=== PATIENT | male | born 1940 ===

== ENCOUNTER 2018-02-11 16:16 | Inpatient (IN) | payer MEDICARE ==
--- NOTE | 2018-02-11 18:03 | ED PDOC ---
HPI: Psych/Substance Abuse Time Seen by Provider: 02/11/18 18:02 Chief Complaint (Nursing): Psychiatric Evaluation Chief Complaint (Provider): eval History Per: Patient, Family (daughter) Additional Complaint(s): 77-year-old male with history of dementia presents to emergency department for evaluation. Patient's daughter states that she brought patient to his primary doctor today and primary doctor referred patient to the emergency room for evaluation. Patient has been wandering outside his home and was missing for over 24 hours last week. When he returned he was complaining of pain to right ribs. It is unclear whether or not he sustained any traumatic injuries. Daughter states that over the past several months patient has had decreased appetite and refuses to eat. The only thing he drinks his coffee. PMD: Dr. Orlando Past Medical History Reviewed: Historical Data, Nursing Documentation, Vital Signs Vital Signs: Last Vital Signs Temp 98.7 F 02/11/18 16:38 Pulse 62 02/11/18 16:38 Resp 16 02/11/18 16:38 BP 116/84 02/11/18 16:38 Pulse Ox 98 02/11/18 16:38 - Medical History PMH: Alzheimer's Disease, Dementia - Family History Family History: States: No Known Family Hx - Living Arrangements Living Arrangements: With Family - Social History Current smoker - smoking cessation education provided: No Alcohol: None Drugs: Denies - Home Medications Home Medications: Ambulatory Orders Medication Instructions Recorded Donepezil HCl [Donepezil HCl] 23 mg PO HS 02/11/18 - Allergies Allergies/Adverse Reactions: Allergies Allergy/AdvReac Type Severity Reaction Status Date / Time No Known Allergies Allergy Verified 02/11/18 16:38 Review of Systems ROS Statement: Except As Marked, All Systems Reviewed And Found Negative Neurological: Positive for: Altered Mental Status Physical Exam - Reviewed Nursing Documentation Reviewed: Yes Vital Signs Reviewed: Yes - Physical Exam Appears: Positive for: Well, Non-toxic, No Acute Distress Head Exam: Positive for: ATRAUMATIC, NORMAL INSPECTION Skin: Positive for: Normal Color. Negative for: Rash Eye Exam: Positive for: Normal appearance Cardiovascular/Chest: Positive for: Regular Rate, Rhythm, Chest Non Tender ( Mild tenderness along right costal margin with no palpable bony deformity) Respiratory: Positive for: Normal Breath Sounds. Negative for: Wheezing, Respiratory Distress Gastrointestinal/Abdominal: Positive for: Soft, Tenderness. Negative for: Distended, Guarding Extremity: Positive for: Normal ROM Neurologic/Psych: Positive for: Other (Patient is alert and awake, he does not answer questions appropriately he is not oriented to person, place or time, patient does follow commands) - Laboratory Results Result Diagrams: 02/11/18 18:51 02/11/18 18:51 - ECG O2 Sat by Pulse Oximetry: 98 Pulse Ox Interpretation: Normal Medical Decision Making Medical Decision Makin-year-old male with altered mental status, sent by PMD. Case d/w Dr. Orlando who states to admit to his service and order labs, CT head and CT chest abdomen and pelvis Plan: EKG CT head, chest, abdomen and pelvis CBC CMP Troponin UA IV insertion Disposition - Clinical Impression Clinical Impression: Altered mental status - Patient ED Disposition Is Patient to be Admitted: Transfer of Care - Disposition Disposition: Transfer of Care Disposition Time: 20:01 Condition: FAIR Forms: [employer] (Bangladeshi) Patient Signed Over To: Marie Emery Handoff Comments: Pending diagnostic testing results
[2018-02-11 18:55] LABS: BASO # 0.1 K/uL (0.0-0.2); EOS # 0.5 K/uL (0.0-0.7); EOS % 6.8 % (0.0-4.0); HEMOGLOBIN 14.6 g/dL (12.0-18.0); LYMPH # 1.2 K/uL (1.0-4.3); LYMPH % 16.5 % (20.0-40.0); MEAN CELL VOLUME 89.3 fl (80.0-94.0); MEAN CORPUSCULAR HEMOGLOBIN 29.8 pg (27.0-31.0); MEAN CORPUSCULAR HGB CONC 33.4 g/dL (33.0-37.0); MEAN PLATELET VOLUME 8.3 fl (7.2-11.7); MONO # 0.7 K/uL (0.0-0.8); MONO % 9.1 % (0.0-10.0); NEUT # 4.9 K/uL (1.8-7.0); NEUT % 66.6 % (50.0-75.0); RBC 4.9 Mil/uL (4.40-5.90); RED CELL DISTRIBUTION WIDTH 13.4 % (11.5-14.5); WHITE BLOOD COUNT 7.4 K/uL (4.8-10.8)
[2018-02-11 19:08] LABS: URINE BACTERIA OCC (<OCC); URINE BILIRUBIN NEGATIVE (NEGATIVE); URINE BLOOD NEGATIVE (NEGATIVE); URINE CLARITY SLIGHTY-CLOUDY (Clear); URINE COLOR YELLOW (YELLOW); URINE GLUCOSE (UA) NEG (Normal); URINE LEUKOCYTE ESTERASE NEG Leu/uL (Negative); URINE PROTEIN NEGATIVE (NEGATIVE)
[2018-02-11 19:13] LABS: ALB/GLOB RATIO 1.4 (1.0-2.1); ALBUMIN 4.6 g/dL (3.5-5.0); ALT/SGPT 43 U/L (21-72); AST/SGOT 60 U/L (17-59); BLOOD UREA NITROGEN 18 mg/dl (9-20); CALCIUM 9.5 mg/dL (8.4-10.2); GFR NON-AFRICAN AMERICAN > 60
--- NOTE | 2018-02-11 20:06 | ED PDOC ---
- Laboratory Results Result Diagrams: 02/11/18 18:51 02/11/18 18:51 - ECG O2 Sat by Pulse Oximetry: 98 - Progress ED Course And Treament: case endorsed to magazine writer from Marcela ANDRADE pending CT's, admission EXAM: CT Head Without Intravenous Contrast EXAM DATE/TIME: 02/11/2018 6:20 PM CLINICAL HISTORY: 77 years old, male; Signs and symptoms; Other: Possible trauma; Additional info : [facility] TECHNIQUE: Axial computed tomography images of the head/brain without intravenous contrast. All CT scans at this facility use at least one of these dose optimization techniques: automated exposure control; mA and/or kV adjustment per patient size (includes targeted exams where dose is matched to clinical indication); or iterative reconstruction. COMPARISON: No relevant prior studies available. FINDINGS: Brain: There is cerebral atrophy with compensatory dilation of the ventricles. Periventricular white matter hypoattenuation most likely reflects chronic small vessel ischemic change. No hemorrhage. Ventricles: See above. Bones/joints: Unremarkable. No acute fracture. Soft tissues: Unremarkable. Sinuses: Unremarkable as visualized. No acute sinusitis. Mastoid air cells: Unremarkable as visualized. No mastoid effusion. IMPRESSION: No acute intracranial findings. EXAM: CT Chest Without Intravenous Contrast EXAM DATE/TIME: 02/11/2018 6:20 PM CLINICAL HISTORY: 77 years old, male; Signs and symptoms; Other: Possible trauma TECHNIQUE: Axial computed tomography images of the chest without intravenous contrast. All CT scans at this facility use at least one of these dose optimization techniques: automated exposure control; mA and/or kV adjustment per patient size (includes targeted exams where dose is matched to clinical indication); or iterative reconstruction. COMPARISON: No relevant prior studies available. FINDINGS: Lungs: Unremarkable. No mass. No consolidation. Pleural space: Unremarkable. No pneumothorax. No significant effusion. Heart: Unremarkable. No cardiomegaly. No significant pericardial effusion. Bones/joints: Old sternal fracture. Old appearing mild compression deformity of the T11 vertebral body. Mild multilevel spondylytic change in the thoracic spine. No dislocation. Soft tissues: Unremarkable. Vasculature: Ectatic ascending thoracic aorta measures 4.4 cm. No thoracic aortic aneurysm. Lymph nodes: Unremarkable. No enlarged lymph nodes. IMPRESSION: 1. No acute posttraumatic finding in the chest. 2. Ectatic ascending thoracic aorta measures 4.4 cm.. EXAM: CT Abdomen and Pelvis Without Intravenous Contrast EXAM DATE/TIME: 02/11/2018 6:20 PM CLINICAL HISTORY: 77 years old, male; Signs and symptoms; Other: Possible trauma TECHNIQUE: Axial computed tomography images of the abdomen and pelvis without intravenous contrast. All CT scans at this facility use at least one of these dose optimization techniques: automated exposure control; mA and/or kV adjustment per patient size (includes targeted exams where dose is matched to clinical indication); or iterative reconstruction. COMPARISON: No relevant prior studies available. FINDINGS: Lung bases: Unremarkable. No mass. No consolidation. ABDOMEN: Liver: Unremarkable. Gallbladder and bile ducts: Unremarkable. No calcified stones. No ductal dilation. Pancreas: Unremarkable. No ductal dilation. Spleen: Unremarkable. No splenomegaly. Adrenals: Unremarkable. No mass. Kidneys and ureters: Unremarkable. No obstructing stones. No hydronephrosis. Stomach and bowel: Unremarkable. No obstruction. No mucosal thickening. PELVIS: Appendix: No findings to suggest acute appendicitis. Bladder: Unremarkable. No stones. Reproductive: Unremarkable as visualized. ABDOMEN and PELVIS: Intraperitoneal space: Unremarkable. No free air. No significant fluid collection. Bones/joints: No acute fracture. No dislocation. Soft tissues: Unremarkable. Vasculature: Atherosclerotic calcifications are present in the abdominal aorta. No abdominal aortic aneurysm. Lymph nodes: Unremarkable. No enlarged lymph nodes. IMPRESSION: No acute posttraumatic finding in the abdomen or pelvis. Patient to be admitted to med/surg under the care of Dr. Orlando as previously arranged. Disposition - Clinical Impression Clinical Impression: Altered mental status, Dementia - POA Present On Arrival: None - Disposition Disposition: Admitted as In-Patient Disposition Time: 20:29 Condition: FAIR
[2018-02-11] MEDS ORDERED: Dextrose 5%/0.45% NS 1,000 ML IV SCH (23:45)
[2018-02-12] MEDS ORDERED: Pneumococcal 23-Valent Vaccine IM ONE (00:23)
[2018-02-12 06:28] LABS: BASO # 0.1 K/uL (0.0-0.2); EOS # 0.7 K/uL (0.0-0.7); EOS % 10.1 % (0.0-4.0); LYMPH # 1.4 K/uL (1.0-4.3); LYMPH % 21.6 % (20.0-40.0); MEAN CELL VOLUME 89.5 fl (80.0-94.0); MEAN CORPUSCULAR HEMOGLOBIN 30.2 pg (27.0-31.0); MEAN CORPUSCULAR HGB CONC 33.7 g/dL (33.0-37.0); MEAN PLATELET VOLUME 8.3 fl (7.2-11.7); MONO # 0.7 K/uL (0.0-0.8); MONO % 10.7 % (0.0-10.0); NEUT # 3.7 K/uL (1.8-7.0); NEUT % 56.6 % (50.0-75.0); RBC 4.63 Mil/uL (4.40-5.90); RED CELL DISTRIBUTION WIDTH 13.4 % (11.5-14.5); WHITE BLOOD COUNT 6.5 K/uL (4.8-10.8)
[2018-02-12 07:01] LABS: BLOOD UREA NITROGEN 18 mg/dl (9-20); CALCIUM 9.1 mg/dL (8.4-10.2); GFR NON-AFRICAN AMERICAN > 60
[2018-02-12 07:15] LABS: T4 8.94 ug/dl (5.5-11.0)
--- NOTE | 2018-02-12 07:29 | CARD ---
APPROVED REPORT Date of service: 02/11/2018 <Conclusion> Sinus bradycardia with premature supraventricular complexes Otherwise normal ECG
--- NOTE | 2018-02-12 08:14 | CP.PCM.HP ---
History of Present Illness - History of Present Illness History of Present Illness: 77 YR OLD MALE ADMITTED WITH ALTERED MENTAL STATUS AND WORSENING CONFUSION X SEVERAL MONTHS--WORSE ON THE WEEK OF ADMISSION.THE PT HAS BECOME PROGRESSIVELY CONFUSED OVER THE PAST SEVERAL WEEKS AND HAS BEEN WONDERING THE STREETS[LOST ON SEVERAL OCCASIONS FOR MORE THAN 24HRS AND HAD TO BE BROUGHT BACK BY POLICE].HE IS CONFUSED TO PERSON/PLACE AND TIME AND HAS BEEN REFUSING TO EAT.HE HAS BEEN COMPLAINING OF CHEST WALL AND ABDOMINAL PAINS[NO HX OF TRAUMA].HAS LOST UNQUANTITATED AMOUNTS OF WEIGHT RECENTLY. PAST MEDICAL HISTORY IS REMARKABLE FOR TRAUMATIC SHOULDER FRACTURE FAMILY [id number] SOCIAL [id number]/DRUG/ETOH Present on Admission - Present on Admission Any Indicators Present on Admission: Yes Past Patient History - Past Medical History & Family History Past Medical History?: Yes - Past Social History Smoking Status: Former Smoker - CARDIAC Hx Cardiac Disorders: No - PULMONARY Hx Respiratory Disorders: No - NEUROLOGICAL Hx Neurological Disorder: Yes Hx Alzheimer's Disease: Yes Hx Dementia: Yes - HEENT Hx HEENT Problems: No - RENAL Hx Chronic Kidney Disease: No - ENDOCRINE/METABOLIC Hx Endocrine Disorders: No - HEMATOLOGICAL/ONCOLOGICAL Hx Blood Disorders: No - INTEGUMENTARY Hx Dermatological Problems: No - MUSCULOSKELETAL/RHEUMATOLOGICAL Hx Musculoskeletal Disorders: No Hx Falls: No - GASTROINTESTINAL Hx Gastrointestinal Disorders: No - GENITOURINARY/GYNECOLOGICAL Hx Genitourinary Disorders: No - PSYCHIATRIC Hx Psychophysiologic Disorder: Yes - SURGICAL HISTORY Hx Surgeries: Yes Hx Herniorrhaphy: Yes (abdominal heria) Other/Comment: neck sx - ANESTHESIA Hx Anesthesia: Yes Hx Anesthesia Reactions: No Hx Malignant Hyperthermia: No Has any member of the family had a problem w/ anesthesia?: No Meds Allergies/Adverse Reactions: Allergies Allergy/AdvReac Type Severity Reaction Status Date / Time No Known Allergies Allergy Verified 02/11/18 16:38 Physical Exam - Constitutional Appears: Well, Older Than Stated Age, Confused, Cachectic - Head Exam Head Exam: ATRAUMATIC, NORMAL INSPECTION, NORMOCEPHALIC - Eye Exam Eye Exam: EOMI, Normal appearance, PERRL Pupil Exam: NORMAL ACCOMODATION, PERRL - ENT Exam ENT Exam: Mucous Membranes Moist, Normal Exam - Neck Exam Neck exam: Positive for: Normal Inspection - Respiratory Exam Respiratory Exam: Chest Wall Tenderness, Clear to Auscultation Bilateral, NORMAL BREATHING PATTERN - Cardiovascular Exam Cardiovascular Exam: REGULAR RHYTHM - GI/Abdominal Exam GI & Abdominal Exam: Normal Bowel Sounds, Soft, Tenderness - Rectal Exam Rectal Exam: NORMAL INSPECTION - Extremities Exam Extremities exam: Positive for: normal inspection - Back Exam Back exam: NORMAL INSPECTION - Neurological Exam Neurological exam: Alert, CN II-XII Intact, Normal Gait, Oriented x3, Reflexes Normal - Psychiatric Exam Psychiatric exam: Normal Affect, Normal Mood - Skin Skin Exam: Dry, Intact, Normal Color, Warm Results - Vital Signs Recent Vital Signs: Last Vital Signs Temp 97.9 F 02/12/18 07:33 Pulse 78 02/12/18 07:33 Resp 20 02/12/18 07:33 BP 135/72 02/12/18 07:33 Pulse Ox 96 02/12/18 07:33 - Labs Result Diagrams: 02/12/18 06:05 02/12/18 06:05 Labs: Laboratory Results - last 24 hr 02/11/18 02/11/18 02/11/18 18:51 18:51 18:51 WBC 7.4 RBC 4.90 Hgb 14.6 Hct 43.7 MCV 89.3 MCH 29.8 MCHC 33.4 RDW 13.4 Plt Count 233 MPV 8.3 Neut % (Auto) 66.6 Lymph % (Auto) 16.5 L [place] % (Auto) 9.1 Eos % (Auto) 6.8 H Baso % (Auto) 1.0 Neut # (Auto) 4.9 Lymph # (Auto) 1.2 [place] # (Auto) 0.7 Eos # (Auto) 0.5 Baso # (Auto) 0.1 Sodium 141 Potassium 4.3 Chloride 103 Carbon Dioxide 33 H Anion Gap 9 L BUN 18 Creatinine 0.6 L Est GFR ( Amer) > 60 Est GFR (Non-Af Amer) > 60 Random Glucose 130 H Calcium 9.5 Total Bilirubin 1.8 H AST 60 H ALT 43 Alkaline Phosphatase 53 Total Protein 7.9 Albumin 4.6 Globulin 3.4 Albumin/Globulin Ratio 1.4 Vitamin B12 Thyroxine (T4) TSH 3rd Generation Urine Color Yellow Urine Clarity Slighty-cloudy Urine pH 6.0 Ur Specific [place] 1.015 Urine Protein Negative Urine Glucose (UA) Neg Urine Ketones Negative Urine Blood Negative Urine Nitrate Negative Urine Bilirubin Negative Urine Urobilinogen 2.0 Ur Leukocyte Esterase Neg Urine RBC (Auto) 2 Urine Microscopic WBC 1 Urine Bacteria Occ H 02/12/18 02/12/18 06:05 06:05 WBC 6.5 RBC 4.63 Hgb 14.0 Hct 41.4 MCV 89.5 MCH 30.2 MCHC 33.7 RDW 13.4 Plt Count 205 MPV 8.3 Neut % (Auto) 56.6 Lymph % (Auto) 21.6 [place] % (Auto) 10.7 H Eos % (Auto) 10.1 H Baso % (Auto) 1.0 Neut # (Auto) 3.7 Lymph # (Auto) 1.4 [place] # (Auto) 0.7 Eos # (Auto) 0.7 Baso # (Auto) 0.1 Sodium 141 Potassium 4.3 Chloride 104 Carbon Dioxide 32 H Anion Gap 9 L BUN 18 Creatinine 0.7 L Est GFR ( Amer) > 60 Est GFR (Non-Af Amer) > 60 Random Glucose 101 Calcium 9.1 Total Bilirubin AST ALT Alkaline Phosphatase Total Protein Albumin Globulin Albumin/Globulin Ratio Vitamin B12 309 Thyroxine (T4) 8.94 TSH 3rd Generation 1.30 Urine Color Urine Clarity Urine pH Ur Specific [place] Urine Protein Urine Glucose (UA) Urine Ketones Urine Blood Urine Nitrate Urine Bilirubin Urine Urobilinogen Ur Leukocyte Esterase Urine RBC (Auto) Urine Microscopic WBC Urine Bacteria Assessment & Plan - Assessment and Plan (Free Text) Assessment: ALTERED MENTAL STATUS--PROBABLY DUE TO DEMENTIA[ALZHEIMER'S TYPE--R/O ORGANIC/ PSYCHIATRIC PATHOLOGY WT LOSS--?ETIOLOGY?MALIGNANCY ABDOMINAL AND CHEST PAINS Plan: NEUROLOGY AND PSYCH EVALUATION MAY NEED OUT PT GI WORKUP FOR WT LOSS IF NEURO AND -PSYCH EVAL ARE NON-REVEALING - Date & Time Date: 02/12/18 Time: 08:21
--- NOTE | 2018-02-12 08:26 | CP.PCM.CON ---
History of Present Illness - History of Present Illness History of Present Illness: Psychiatry consult note CC: "I'm fine." HPI: 77 yo male, found wondering the streets, getting lost on several occasions. Patient is calm w/ leader writer. Denies depression/anxiety/AH/VH/SI/HI. No acute behavioral issues. He does not know that he is in the hospital or why. He does not know the date. He is a poor historian and has poor insight into his cognitive deficits. PMHx: Traumatic shoulder fracture; patient unable to provide any information PPHx: Patient denies past psychiatric history. SHx: Denies drugs/etoh/cig MSE: A + O x 1, calm, cooperative, good eye contact, speech soft, thought process- loose, thought content- no delusions, mood/affect- neutral, no AH/VH/SI /HI, poor I/J Head CT 02/11/18- Cerebral atrophy Impression: 77 yo male likely has chronic dementia, r/o acute delirium secondary to an acute medical condition. -No acute psychiatric medications or psychiatric admission indicated -Can consider a psychology consult for neurocognitive testing to determine degree of cognitive deficits Past Patient History - Past Medical History & Family History Past Medical History?: Yes - Past Social History Smoking Status: Former Smoker - CARDIAC Hx Cardiac Disorders: No - PULMONARY Hx Respiratory Disorders: No - NEUROLOGICAL Hx Neurological Disorder: Yes Hx Alzheimer's Disease: Yes Hx Dementia: Yes - HEENT Hx HEENT Problems: No - RENAL Hx Chronic Kidney Disease: No - ENDOCRINE/METABOLIC Hx Endocrine Disorders: No - HEMATOLOGICAL/ONCOLOGICAL Hx Blood Disorders: No - INTEGUMENTARY Hx Dermatological Problems: No - MUSCULOSKELETAL/RHEUMATOLOGICAL Hx Musculoskeletal Disorders: No Hx Falls: No - GASTROINTESTINAL Hx Gastrointestinal Disorders: No - GENITOURINARY/GYNECOLOGICAL Hx Genitourinary Disorders: No - PSYCHIATRIC Hx Psychophysiologic Disorder: Yes - SURGICAL HISTORY Hx Surgeries: Yes Hx Herniorrhaphy: Yes (abdominal heria) Other/Comment: neck sx - ANESTHESIA Hx Anesthesia: Yes Hx Anesthesia Reactions: No Hx Malignant Hyperthermia: No Has any member of the family had a problem w/ anesthesia?: No Meds Allergies/Adverse Reactions: Allergies Allergy/AdvReac Type Severity Reaction Status Date / Time No Known Allergies Allergy Verified 02/11/18 16:38 - Medications Medications: Current Medications Dextrose/Sodium Chloride (Dextrose 5%/0.45% Ns 1000 Ml) 1,000 mls @ 40 mls/hr IV .Q24H LIUDMILA Stop: 02/12/18 23:57 Last Admin: 02/12/18 00:45 Dose: 40 mls/hr Lorazepam (Ativan) 1 mg PO BID PRN PRN Reason: Agitation Memantine (Namenda) 10 mg PO DAILY LIUDMILA Results - Vital Signs Recent Vital Signs: Last Vital Signs Temp 97.9 F 02/12/18 07:33 Pulse 78 02/12/18 07:33 Resp 20 02/12/18 07:33 BP 135/72 02/12/18 07:33 Pulse Ox 96 02/12/18 07:33 - Labs Result Diagrams: 02/12/18 06:05 02/12/18 06:05 Labs: Laboratory Results - last 24 hr 02/11/18 02/11/18 02/11/18 18:51 18:51 18:51 WBC 7.4 RBC 4.90 Hgb 14.6 Hct 43.7 MCV 89.3 MCH 29.8 MCHC 33.4 RDW 13.4 Plt Count 233 MPV 8.3 Neut % (Auto) 66.6 Lymph % (Auto) 16.5 L [place] % (Auto) 9.1 Eos % (Auto) 6.8 H Baso % (Auto) 1.0 Neut # (Auto) 4.9 Lymph # (Auto) 1.2 [place] # (Auto) 0.7 Eos # (Auto) 0.5 Baso # (Auto) 0.1 Sodium 141 Potassium 4.3 Chloride 103 Carbon Dioxide 33 H Anion Gap 9 L BUN 18 Creatinine 0.6 L Est GFR ( Amer) > 60 Est GFR (Non-Af Amer) > 60 Random Glucose 130 H Calcium 9.5 Total Bilirubin 1.8 H AST 60 H ALT 43 Alkaline Phosphatase 53 Total Protein 7.9 Albumin 4.6 Globulin 3.4 Albumin/Globulin Ratio 1.4 Vitamin B12 Thyroxine (T4) TSH 3rd Generation Urine Color Yellow Urine Clarity Slighty-cloudy Urine pH 6.0 Ur Specific [place] 1.015 Urine Protein Negative Urine Glucose (UA) Neg Urine Ketones Negative Urine Blood Negative Urine Nitrate Negative Urine Bilirubin Negative Urine Urobilinogen 2.0 Ur Leukocyte Esterase Neg Urine RBC (Auto) 2 Urine Microscopic WBC 1 Urine Bacteria Occ H 02/12/18 02/12/18 06:05 06:05 WBC 6.5 RBC 4.63 Hgb 14.0 Hct 41.4 MCV 89.5 MCH 30.2 MCHC 33.7 RDW 13.4 Plt Count 205 MPV 8.3 Neut % (Auto) 56.6 Lymph % (Auto) 21.6 [place] % (Auto) 10.7 H Eos % (Auto) 10.1 H Baso % (Auto) 1.0 Neut # (Auto) 3.7 Lymph # (Auto) 1.4 [place] # (Auto) 0.7 Eos # (Auto) 0.7 Baso # (Auto) 0.1 Sodium 141 Potassium 4.3 Chloride 104 Carbon Dioxide 32 H Anion Gap 9 L BUN 18 Creatinine 0.7 L Est GFR ( Amer) > 60 Est GFR (Non-Af Amer) > 60 Random Glucose 101 Calcium 9.1 Total Bilirubin AST ALT Alkaline Phosphatase Total Protein Albumin Globulin Albumin/Globulin Ratio Vitamin B12 309 Thyroxine (T4) 8.94 TSH 3rd Generation 1.30 Urine Color Urine Clarity Urine pH Ur Specific [place] Urine Protein Urine Glucose (UA) Urine Ketones Urine Blood Urine Nitrate Urine Bilirubin Urine Urobilinogen Ur Leukocyte Esterase Urine RBC (Auto) Urine Microscopic WBC Urine Bacteria
--- NOTE | 2018-02-12 10:24 | CT ---
Date of service: 02/11/2018 PROCEDURE: CT HEAD WITHOUT CONTRAST. HISTORY: AMS COMPARISON: None available. TECHNIQUE: Axial computed tomography images were obtained through the head/brain without intravenous contrast. Radiation dose: Total exam DLP = 726 mGy-cm. This CT exam was performed using one or more of the following dose reduction techniques: Automated exposure control, adjustment of the mA and/or kV according to patient size, and/or use of iterative reconstruction technique. FINDINGS: HEMORRHAGE: No intracranial hemorrhage. BRAIN: No mass effect or edema. There is generalized cerebral atrophy with chronic microvascular ischemic changes. VENTRICLES: The ventriculomegaly is commensurate with the degree of atrophy CALVARIUM: Unremarkable. PARANASAL SINUSES: Unremarkable as visualized. No significant inflammatory changes. MASTOID AIR CELLS: Unremarkable as visualized. No inflammatory changes. OTHER FINDINGS: None. IMPRESSION: Cerebral atrophy, chronic microvascular ischemic changes and intracanal megaly -commensurate with the degree of atrophy No intracranial hemorrhage or mass effect Concordant results (preliminary interpretation) provided by [facility].
--- NOTE | 2018-02-12 10:51 | RAD ---
Date of service: 02/11/2018 HISTORY: clearance COMPARISON: No prior. FINDINGS: LUNGS: The lungs are well inflated and clear. PLEURA: No significant pleural effusion identified, no pneumothorax apparent. CARDIOVASCULAR: The heart is normal in size. There is aneurysmal dilatation of the ascending aorta. OSSEOUS STRUCTURES: No significant abnormalities. VISUALIZED UPPER ABDOMEN: Normal. OTHER FINDINGS: None. IMPRESSION: Aneurysmal dilatation of the ascending aorta. No active pulmonary disease.
--- NOTE | 2018-02-12 11:55 | CT ---
Date of service: 02/11/2018 PROCEDURE: CT Chest, Abdomen and Pelvis without intravenous contrast HISTORY: possible trauma COMPARISON: None available. TECHNIQUE: CT scan of the chest, abdomen and pelvis was performed without administration of intravenous contrast. Oral contrast was not administered. Coronal and sagittal reformatted images were obtained. Radiation dose: Total exam DLP = 350.73 mGy-cm. This CT exam was performed using one or more of the following dose reduction techniques: Automated exposure control, adjustment of the mA and/or kV according to patient size, and/or use of iterative reconstruction technique. FINDINGS: CT CHEST WITHOUT CONTRAST: LUNGS: Well inflated and clear. No nodule, mass or consolidation. MEDIASTINUM: Aneurysm of the ascending aorta measuring 4.4 x 4.4 cm. No pericardial effusion. Normal size heart. LYMPH NODES: Unremarkable. PLEURA: Unremarkable. No pneumothorax. No pleural fluid. BONES: Old deformity in the sternum. Old osteoporotic superior endplate compression deformity in the T11 vertebral body. OTHER FINDINGS: None. CT ABDOMEN AND PELVIS: LIVER: Normal in size. No gross lesion or ductal dilatation. GALLBLADDER AND BILE DUCTS: Unremarkable. PANCREAS: Normal in sinus. No gross lesion or ductal dilatation. SPLEEN: Normal in sinus. ADRENALS: No mass. KIDNEYS AND URETERS: Normal in sinus. No hydronephrosis. No solid mass. VASCULATURE: No aortic aneurysm. BOWEL: Normal in caliber. No obstruction. No gross mural thickening. APPENDIX: Normal appendix. PERITONEUM: Unremarkable. No free fluid. No free air. LYMPH NODES: Unremarkable. No enlarged lymph nodes. BLADDER: Unremarkable. REPRODUCTIVE: Unremarkable. BONES: No acute fracture. OTHER FINDINGS: None. IMPRESSION: 1. No acute findings in the chest. 2. 4.4 x 4.4 cm aneurysm of the ascending aorta. 3. No acute findings in the abdomen or pelvis. A preliminary report was provided by [facility].
[2018-02-12 12:48] VITALS: BMI 16.1
--- NOTE | 2018-02-13 07:58 | CP.PCM.PN ---
Subjective - Date & Time of Evaluation Date of Evaluation: 02/13/18 Time of Evaluation: 07:59 - Subjective Subjective: CALMER NO APPARENT DISTRESS CONFUSED TO PERSON/PLACE/TIME POOR INSIGHT DOES NOT KNOW WHY HE IS IN HOSPITAL Objective - Vital Signs/Intake and Output Vital Signs (last 24 hours): Temp Pulse Resp BP Pulse Ox 97.5 F L 54 L 18 149/80 99 02/13/18 07:34 02/13/18 07:34 02/13/18 07:34 02/13/18 07:34 02/13/18 07:34 - Medications Medications: Current Medications Haloperidol (Haldol) 0.5 mg PO Q8 PRN PRN Reason: Agitation Last Admin: 02/12/18 22:15 Dose: 0.5 mg Haloperidol Lactate (Haldol) 0.5 mg IM Q8 PRN PRN Reason: Agitation Memantine (Namenda) 10 mg PO DAILY LIUDMILA Last Admin: 02/12/18 09:14 Dose: 10 mg - Labs Labs: 02/12/18 06:05 02/12/18 06:05 - Constitutional Appears: No Acute Distress, Confused - Head Exam Head Exam: ATRAUMATIC, NORMAL INSPECTION, NORMOCEPHALIC - Eye Exam Eye Exam: EOMI, Normal appearance, PERRL Pupil Exam: NORMAL ACCOMODATION, PERRL - ENT Exam ENT Exam: Mucous Membranes Moist, Normal Exam - Neck Exam Neck Exam: Full ROM, Normal Inspection. absent: Lymphadenopathy - Respiratory Exam Respiratory Exam: Clear to Ausculation Bilateral, NORMAL BREATHING PATTERN - Cardiovascular Exam Cardiovascular Exam: REGULAR RHYTHM, +S1, +S2. absent: Murmur - GI/Abdominal Exam GI & Abdominal Exam: Soft, Normal Bowel Sounds. absent: Tenderness - Rectal Exam Rectal Exam: NORMAL INSPECTION - Extremities Exam Extremities Exam: Full ROM, Normal Capillary Refill, Normal Inspection. 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
--- NOTE | 2018-02-13 14:24 | CP.PCM.CON ---
History of Present Illness - History of Present Illness History of Present Illness: 77 yr old male, right handed who has a history of dementia, and presents with worsening confusion for several months, as well as wandering the streets. At time he has been missing for several hours. History is obtained from chart as patient is agitated and not able to give history. PMH: left shoulder fracture PSH: as above. FH/SH: lives with family. All: nkda On exam: alert aware oriented to person and place. no hallucinations. can name one object. no apasia. motor: good strength +2 dtr ul and ll bl. Toes downgoing. no clonus. gait testing refused. Past Patient History - Past Medical History & Family History Past Medical History?: Yes - Past Social History Smoking Status: Former Smoker - CARDIAC Hx Cardiac Disorders: No - PULMONARY Hx Respiratory Disorders: No - NEUROLOGICAL Hx Neurological Disorder: Yes Hx Alzheimer's Disease: Yes Hx Dementia: Yes - HEENT Hx HEENT Problems: No - RENAL Hx Chronic Kidney Disease: No - ENDOCRINE/METABOLIC Hx Endocrine Disorders: No - HEMATOLOGICAL/ONCOLOGICAL Hx Blood Disorders: No - INTEGUMENTARY Hx Dermatological Problems: No - MUSCULOSKELETAL/RHEUMATOLOGICAL Hx Musculoskeletal Disorders: No Hx Falls: No - GASTROINTESTINAL Hx Gastrointestinal Disorders: No - GENITOURINARY/GYNECOLOGICAL Hx Genitourinary Disorders: No - PSYCHIATRIC Hx Psychophysiologic Disorder: Yes - SURGICAL HISTORY Hx Surgeries: Yes Hx Herniorrhaphy: Yes (abdominal heria) Other/Comment: neck sx - ANESTHESIA Hx Anesthesia: Yes Hx Anesthesia Reactions: No Hx Malignant Hyperthermia: No Has any member of the family had a problem w/ anesthesia?: No Meds Allergies/Adverse Reactions: Allergies Allergy/AdvReac Type Severity Reaction Status Date / Time No Known Allergies Allergy Verified 02/11/18 16:38 - Medications Medications: Current Medications Haloperidol (Haldol) 0.5 mg PO Q8 PRN PRN Reason: Agitation Last Admin: 02/12/18 22:15 Dose: 0.5 mg Haloperidol Lactate (Haldol) 0.5 mg IM Q8 PRN PRN Reason: Agitation Memantine (Namenda) 10 mg PO DAILY LIUDMILA Last Admin: 02/13/18 10:05 Dose: 10 mg Results - Vital Signs Recent Vital Signs: Last Vital Signs Temp 97.5 F L 02/13/18 07:34 Pulse 54 L 02/13/18 07:34 Resp 18 02/13/18 07:34 BP 149/80 02/13/18 07:34 Pulse Ox 99 02/13/18 07:34 - Labs Result Diagrams: 02/12/18 06:05 02/12/18 06:05 - Imaging and Cardiology CT scan - head Status: Image reviewed by me, Report reviewed by me (ct head: shows atrophy and bifrontal hygromas. ) Assessment & Plan - Assessment and Plan (Free Text) Assessment: 77 yr old male with severe dementia and agitation. Appreciate psych consult and agree with delirium/psychosis of parkinsons. plan; 1. Start seroquel 25 mg po qhs 2. continue all other meds Will follow dr. atwood
[2018-02-13 15:50] VITALS: RESP 20
[2018-02-14 07:53] VITALS: O2SAT 97
--- NOTE | 2018-02-14 08:46 | CP.PCM.PN ---
Subjective - Date & Time of Evaluation Date of Evaluation: 02/14/18 Time of Evaluation: 08:44 - Subjective Subjective: Mr. Galicia was seen and examined at the bedside. He is awake, oriented to place ( [facility]), but not time and person. He is unable to answer some questions and claim of being 89 y/o and further claims of consuming all his foods. He is able to move all extremities. He remains on telesitter for patient safety. There was no untoward events overnight. Objective - Vital Signs/Intake and Output Vital Signs (last 24 hours): Temp Pulse Resp BP Pulse Ox 97.7 F 88 20 127/79 97 02/14/18 07:52 02/14/18 07:52 02/14/18 07:52 02/14/18 07:52 02/14/18 07:52 - Medications Medications: Current Medications Haloperidol (Haldol) 0.5 mg PO Q8 PRN PRN Reason: Agitation Last Admin: 02/12/18 22:15 Dose: 0.5 mg Haloperidol Lactate (Haldol) 0.5 mg IM Q8 PRN PRN Reason: Agitation Memantine (Namenda) 10 mg PO DAILY [facility] Last Admin: 02/14/18 08:31 Dose: 10 mg Quetiapine Fumarate (Seroquel) 25 mg PO HS LIUDMILA - Labs Labs: 02/12/18 06:05 02/12/18 06:05 - Constitutional Appears: No Acute Distress - Head Exam Head Exam: NORMAL INSPECTION - Eye Exam Pupil Exam: PERRL - Neurological Exam Neurological Exam: Awake Neuro motor strength exam: Left Upper Extremity: 4, Right Upper Extremity: 4, Left Lower Extremity: 4, Right Lower Extremity: 4 Additional comments: awake, able to answer couple questions appropriately, sensation is intact. Assessment and Plan (1) Dementia Assessment & Plan: Continue all current medical regimen. Recommend hydration, provide a familiar environment, may d/c to home and follow up with DR. Johnson in 2 weeks at [address] [place] [address] [address] [facility] [address], tel [phone] Status: Acute
--- NOTE | 2018-02-14 10:35 | CP.PCM.DIS ---
Provider - Provider Date of Admission: 02/11/18 20:27 Attending physician: Ceasar Orlando MD Time Spent in preparation of Discharge (in minutes): 30 Diagnosis - Discharge Diagnosis (1) Altered mental status Status: Acute (2) Dementia Status: Acute Hospital Course - Lab Results Lab Results: Most Recent Lab Values WBC 6.5 K/uL (4.8-10.8) 02/12/18 06:05 RBC 4.63 Mil/uL (4.40-5.90) 02/12/18 06:05 Hgb 14.0 g/dL (12.0-18.0) 02/12/18 06:05 Hct 41.4 % (35.0-51.0) 02/12/18 06:05 MCV 89.5 fl (80.0-94.0) 02/12/18 06:05 MCH 30.2 pg (27.0-31.0) 02/12/18 06:05 MCHC 33.7 g/dL (33.0-37.0) 02/12/18 06:05 RDW 13.4 % (11.5-14.5) 02/12/18 06:05 Plt Count 205 K/uL (130-400) 02/12/18 06:05 MPV 8.3 fl (7.2-11.7) 02/12/18 06:05 Neut % (Auto) 56.6 % (50.0-75.0) 02/12/18 06:05 Lymph % (Auto) 21.6 % (20.0-40.0) 02/12/18 06:05 [place] % (Auto) 10.7 % (0.0-10.0) H 02/12/18 06:05 Eos % (Auto) 10.1 % (0.0-4.0) H 02/12/18 06:05 Baso % (Auto) 1.0 % (0.0-2.0) 02/12/18 06:05 Neut # (Auto) 3.7 K/uL (1.8-7.0) 02/12/18 06:05 Lymph # (Auto) 1.4 K/uL (1.0-4.3) 02/12/18 06:05 [place] # (Auto) 0.7 K/uL (0.0-0.8) 02/12/18 06:05 Eos # (Auto) 0.7 K/uL (0.0-0.7) 02/12/18 06:05 Baso # (Auto) 0.1 K/uL (0.0-0.2) 02/12/18 06:05 Sodium 141 mmol/l (132-148) 02/12/18 06:05 Potassium 4.3 MMOL/L (3.6-5.0) 02/12/18 06:05 Chloride 104 mmol/L (98-107) 02/12/18 06:05 Carbon Dioxide 32 mmol/L (22-30) H 02/12/18 06:05 Anion Gap 9 (10-20) L 02/12/18 06:05 BUN 18 mg/dl (9-20) 02/12/18 06:05 Creatinine 0.7 mg/dl (0.8-1.5) L 02/12/18 06:05 Est GFR ( Amer) > 60 02/12/18 06:05 Est GFR (Non-Af Amer) > 60 02/12/18 06:05 Random Glucose 101 mg/dL (75-110) 02/12/18 06:05 Calcium 9.1 mg/dL (8.4-10.2) 02/12/18 06:05 Total Bilirubin 1.8 mg/dl (0.2-1.3) H 02/11/18 18:51 AST 60 U/L (17-59) H 02/11/18 18:51 ALT 43 U/L (21-72) 02/11/18 18:51 Alkaline Phosphatase 53 U/L (38-126) 02/11/18 18:51 Total Protein 7.9 G/DL (6.3-8.2) 02/11/18 18:51 Albumin 4.6 g/dL (3.5-5.0) 02/11/18 18:51 Globulin 3.4 gm/dL (2.2-3.9) 02/11/18 18:51 Albumin/Globulin Ratio 1.4 (1.0-2.1) 02/11/18 18:51 Vitamin B12 309 pg/mL (239-931) 02/12/18 06:05 Thyroxine (T4) 8.94 ug/dl (5.5-11.0) 02/12/18 06:05 TSH 3rd Generation 1.30 mIU/ML (0.46-4.68) 02/12/18 06:05 Urine Color Yellow (YELLOW) 02/11/18 18:51 Urine Clarity Slighty-cloudy (Clear) 02/11/18 18:51 Urine pH 6.0 (5.0-8.0) 02/11/18 18:51 Ur Specific [place] 1.015 (1.003-1.030) 02/11/18 18:51 Urine Protein Negative mg/dL (NEGATIVE) 02/11/18 18:51 Urine Glucose (UA) Neg mg/dL (Normal) 02/11/18 18:51 Urine Ketones Negative mg/dL (NEGATIVE) 02/11/18 18:51 Urine Blood Negative (NEGATIVE) 02/11/18 18:51 Urine Nitrate Negative (NEGATIVE) 02/11/18 18:51 Urine Bilirubin Negative (NEGATIVE) 02/11/18 18:51 Urine Urobilinogen 2.0 mg/dL (0.2-1.0) 02/11/18 18:51 Ur Leukocyte Esterase Neg [place]/uL (Negative) 02/11/18 18:51 Urine RBC (Auto) 2 /hpf (0-3) 02/11/18 18:51 Urine Microscopic WBC 1 /hpf (0-5) 02/11/18 18:51 Urine Bacteria Occ (<OCC) H 02/11/18 18:51 - Hospital Course Hospital Course: CALMER MENTAL STATUS SLIGHTLY IMPROVED WITH MEDS ALL WORKUP NON-REVEALING Discharge Exam - Head Exam Head Exam: NORMAL INSPECTION - Eye Exam Eye Exam: EOMI, Normal appearance, PERRL Pupil Exam: NORMAL ACCOMODATION, PERRL - GI/Abdominal Exam GI & Abdominal Exam: Normal Bowel Sounds - Rectal Exam Rectal Exam: NORMAL INSPECTION - Neurological Exam Neurological exam: Alert, CN II-XII Intact, Normal Gait, Reflexes Normal - Psychiatric Exam Psychiatric exam: Flat Affect, Normal Mood - Skin Skin Exam: Dry, Intact, Normal Color, Warm Discharge Plan - Follow Up Plan Condition: FAIR Disposition: HOME/ ROUTINE Patient education suggested?: Yes Additional Instructions: DISCHARGE TODAY CASE DISCUSSED WITH DAUGHTER--MOLINA
--- NOTE | 2018-02-14 11:41 | CP.PCM.CON ---
History of Present Illness - History of Present Illness History of Present Illness: Pt is a 78 year old [place] male admitted to [facility] and referred to the movie writer for evalaution. On the DRS, pt scored an overall score of 100>. Pt scored in the DEficient Range on all tasks. Pt's Attention, Construction, Conceptualization, memory and Initiation skills all fell in the Deficient Range. Pt positive for compensatory strategies on evaluation. Was fluent in speech with the content irrelevant. Note, pt was not oriented to year, month, day, date. Was able to relate where he was/hospital name and city. Pt was unable to name the president/governor and short term information. Overall 90-100> Attention 28 (deficient) Initiation 28 (deficient) Construction 3 (deficient) Memory 10 (deficient) Conceptualizaiton 20 (deficient) Thank you for this referral, Pt indicated that he resides with family- supervision reccomended, particularly for medication managment and corporate financial analyst. Past Patient History - Past Medical History & Family History Past Medical History?: Yes - Past Social History Smoking Status: Former Smoker - CARDIAC Hx Cardiac Disorders: No - PULMONARY Hx Respiratory Disorders: No - NEUROLOGICAL Hx Neurological Disorder: Yes Hx Alzheimer's Disease: Yes Hx Dementia: Yes - HEENT Hx HEENT Problems: No - RENAL Hx Chronic Kidney Disease: No - ENDOCRINE/METABOLIC Hx Endocrine Disorders: No - HEMATOLOGICAL/ONCOLOGICAL Hx Blood Disorders: No - INTEGUMENTARY Hx Dermatological Problems: No - MUSCULOSKELETAL/RHEUMATOLOGICAL Hx Musculoskeletal Disorders: No Hx Falls: No - GASTROINTESTINAL Hx Gastrointestinal Disorders: No - GENITOURINARY/GYNECOLOGICAL Hx Genitourinary Disorders: No - PSYCHIATRIC Hx Psychophysiologic Disorder: Yes - SURGICAL HISTORY Hx Surgeries: Yes Hx Herniorrhaphy: Yes (abdominal heria) Other/Comment: neck sx - ANESTHESIA Hx Anesthesia: Yes Hx Anesthesia Reactions: No Hx Malignant Hyperthermia: No Has any member of the family had a problem w/ anesthesia?: No Meds Home Medications: Home Medication List Medication Instructions Recorded Confirmed Type Donepezil HCl 23 mg PO HS #30 tablet 02/14/18 Rx QUEtiapine [Seroquel] 25 mg PO HS #30 tab 02/14/18 Rx Allergies/Adverse Reactions: Allergies Allergy/AdvReac Type Severity Reaction Status Date / Time No Known Allergies Allergy Verified 02/11/18 16:38 - Medications Medications: Current Medications Haloperidol (Haldol) 0.5 mg PO Q8 PRN PRN Reason: Agitation Last Admin: 02/12/18 22:15 Dose: 0.5 mg Haloperidol Lactate (Haldol) 0.5 mg IM Q8 PRN PRN Reason: Agitation Memantine (Namenda) 10 mg PO DAILY LIUDMILA Last Admin: 02/14/18 08:31 Dose: 10 mg Quetiapine Fumarate (Seroquel) 25 mg PO HS [facility] Results - Vital Signs Recent Vital Signs: Last Vital Signs Temp 97.7 F 02/14/18 07:52 Pulse 88 02/14/18 07:52 Resp 20 02/14/18 07:52 BP 127/79 02/14/18 07:52 Pulse Ox 97 02/14/18 07:52 - Labs Result Diagrams: 02/12/18 06:05 02/12/18 06:05
[2018-02-14 16:57] VITALS: BP 105/61; PULSE 84; TEMP 97.9
== END 2018-02-14 18:45 | disposition home or self-care (01) | DRG 57 ==
LOC: H.ER 16:16 → H.ERHOLD 20:27 → H.MEDSURG1 23:28
PROVIDERS: ADMIT Internal Medicine Pulmonary Disease; ATTEND Internal Medicine Pulmonary Disease
PROC: 3E0234Z Introduction of Serum, Toxoid and Vaccine into Muscle, Percutaneous Approach (ICD-10-PCS; principal; 2018-02-12)
DX: G30.9 Alzheimer's disease, unspecified (principal); F02.81 Dementia in other diseases classified elsewhere, unspecified severity, with behavioral disturbance; F05 Delirium due to known physiological condition; G20 Parkinson's disease; Z91.83 Wandering in diseases classified elsewhere; I77.810 Thoracic aortic ectasia; Z23 Encounter for immunization; Z87.891 Personal history of nicotine dependence